=== PATIENT | male | born 1935 | race Caucasian/White ===

== ENCOUNTER 2016-09-19 10:00 | Inpatient (IN) | payer MEDICARE ==
[~2016-09-19] VITALS: Ht 172.7 cm; Wt 83.5 kg
--- NOTE | ~2016-09-19 | OR ---
PATIENT'S NAME: FERNANDA [facility] AGE: 81 Y [address] ROOM: [address] [address] LOCATION: [facility] ADMIT DATE: 10/12/2016 OR/Procedure Report DISCHARGE DATE: FAMILY PHYSICIAN: John Perez MD ATTENDING PHYSICIAN: Bill Melvin SURGEON: Bill Melvin MD PATHOLOGY SECRETARY: DATE OF PROCEDURE: 10/12/2016 PREOPERATIVE DIAGNOSIS: Varus osteoarthritis, right knee. POSTOPERATIVE DIAGNOSIS: Varus osteoarthritis, right knee. OPERATION PERFORMED: [facility] computer-navigated tricompartmental cemented right total knee replacement with [place] Triathlon #5 femoral component, #6 tibial tray with a 9 mm spacer and a 38 patella. ANESTHESIA: Subarachnoid block. INDICATIONS: This is an 81-year-old male with clinical and radiographic evidence of osteoarthritis of the right knee that no longer is responding to nonoperative treatments with physical therapy and steroid injections. DESCRIPTION OF PROCEDURE: The patient was brought to the operating room, and when a satisfactory spinal anesthesia had been established, his right lower extremity was prepped and draped in an aseptic manner. The skin over the planned incision was injected with Talha mix, and a straight anterior incision was made and carried down through the subcutaneous fat. A quadriceps- splitting approach was utilized such that the patella could be dislocated laterally and everted. The patella was measured at 22 and cut down to 14 mm. A 38 appeared to fit the best, and 3 fixation holes were drilled. The cut patellar surface was protected with a 29 mm trial. The distal femur was then exposed and the ASM gantry pinned to the distal femur. The hip flexion was registered and center of rotation of the hip found. The center of the intercondylar notch in the AP femoral angle and the medial and lateral femoral condyles were all registered. The alignment jig was placed and cut planned for 9 mm depth of cut at the distal femur at 5 degrees of flexion and 0 degrees of varus and valgus. The cutting block was pinned in place, and the distal femoral cut was made. The footed sizing jig was placed and the 2 provisional fixation holes drilled. The #6 cutting block was selected, and it was impacted onto the end of the distal femur. The anterior femoral cut was made, and it appeared to be somewhat shallow, so the #5 cutting block was placed, and the anterior femoral cut was just right, so the and posterior femoral and anterior and posterior femoral chamfer cuts were made. The tibia was exposed and the soft tissues debrided. The ASM gantry was pinned to the PATIENT'S NAME: FERNANDA [facility] AGE: 81 Y [address] ROOM: [place] [address] LOCATION: [facility] ADMIT DATE: 10/12/2016 OR/Procedure Report DISCHARGE DATE: FAMILY PHYSICIAN: John Perez MD ATTENDING PHYSICIAN: Bill Melvin tibial articular surface, and the center of the tibia and midline of the tibia and medial and lateral tibial plateaus and medial and lateral malleoli were all registered. The alignment jig was placed and cut planned for 3 degrees posterior slope with 0 degrees of varus and valgus and 9 mm depth of cut off the lateral tibial plateau. The tibial cut was made. The spacer block was placed and the knee extended fully. The trial femur was then placed and posterior femoral osteophytes excised and posterior capsule injected with Talha mix and the Aquamantys used for hemostasis in the posterior capsule. The #6 trial appeared to fit the best, and it was placed free on the tibia and the knee flexed and extended multiple times and then the tibial template pinned onto the cut surface of the tibia. The trials were removed and the tower clipped onto the tibial template and the plunger impacted home. Trial reduction with a 9 mm spacer allowed full extension, and the knee was stable to varus and valgus stressing. Cut bony surfaces were irrigated and dried while cement was mixed. The tibial tray was cemented into place first and excess cement removed while soft with a [place] elevator. The 9 mm spacer was impacted home and the femoral and patellar components were cemented into place and excess cement removed while soft with a [place] elevator. Once the cement had set, the knee was taken through a range of motion, and the patella tracked well without any thumb pressure. The knee appeared to extend fully as well. The knee was irrigated copiously with saline and closed in layers using a running #1 Vicryl for the quadriceps tendon. Medial capsule was closed with a running #1 Vicryl, the subcutaneous fat closed with running 2-0 Vicryl, and the skin closed with skin mary. Dressings were applied and the patient sent to the PACU, having tolerated the procedure well. MD VINICIUS LATHAM/jsoh /[id number] d: 10/12/16 1403 t: 10/19/16 1253, OPERATIVE SUMMARY
--- NOTE | ~2016-09-19 | DS ---
PATIENT'S NAME: FERNANDA [facility]OS [facility] AGE: 81 Y [address] ROOM: [address] [address] LOCATION: G3 ADMIT DATE: 10/12/2016 Discharge Summary DISCHARGE DATE: 10/14/2016 FAMILY PHYSICIAN: John Perez MD ATTENDING PHYSICIAN: Bill Melvin ADMITTING DIAGNOSIS: Degenerative joint disease, right knee. COMORBIDITIES: 1. Hypertension. 2. Hyperlipidemia. 3. Sick sinus syndrome. 4. Atrial fibrillation. 5. Coronary artery disease. 6. Obstructive sleep apnea. 7. Stage 3 chronic kidney disease. 8. History of prostate cancer. 9. Dementia. HOSPITAL COURSE: The patient was admitted for the aforementioned right total knee arthroplasty. He had a [place] triathlon size 6 tibial base plate, size 5 cruciate retaining femur, asymmetric 38 patella, and a 9 mm bearing. He was given enteric-coated aspirin 325 p.o. b.i.d. for postoperative DVT prophylaxis and was given Pepcid for the same course and duration. He had a pericapsular block as well as a spinal anesthetic. Postoperative day 1, he was comfortable; alert and oriented x3. Neurovascular was intact. Dressings were clean, dry, and intact. PT and mobility were ordered. Postop hemoglobin 14.1. He had some moderate knee and foot pain. He did have chronic peripheral neuropathy and adjustments were made for his gabapentin. Arrangements were made for the patient to be transferred to a swing bed closer to home. DISCHARGE INSTRUCTIONS: Mepilex on until seen in the clinic. [facility]. Continue PT. Weight bear as tolerated. Cardiac prudent diet. Follow up with myself in 6 to 12 days. Leave Mepilex on. EMELY ARRIOLA FOR MD EDA LATHAM/josh /[id number] d: 10/20/16 1116 t: 10/24/16 1423, DISCHARGE SUMMARY
[~2016-09-19 10:00] MED LIST: ADVIL200 M1 PO; ALDACTONE25 MG PO; ASPIRIN325 MG PO; CORDARONE,PACE200 MG PO; COZAAR25 MG PO; DITROPAN5 MG PO; LIPITOR40 MG PO; NEURONTIN300 MG PO; NORVASC2.5 MG PO; TRIAMCINOLONE454 GM TOP
--- NOTE | 2016-10-12 15:00 | NUR ---
RECEIVED REFRRAL TO ARRANGE FOR PATIENT TO GO TO SNF. I MEET WITH PATIENT AND HIS SON AT THE BEDSIDE. INTRODUCED CM AND OUR ROLE. PATIENT LIVES ALONE IN OWN HOME. HIS SON WILL NOT BE ABLE TO HELP HIM FOR A WEEK AND THEY FEEL FERNANDA WILL NEED TO GO TO SNF FOR SHORT STAY. PRESENTED TO THEM THE SNF OPTIONS IN [place] AND FERNANDA WOULD LIKE FOR ME TO CHECK WITH [facility] OR [facility]. I MADE REFERRAL TO MEI WITH [facility] AND SHE INFORMS ME THAT [facility] HAS A OPENING. SHE WOULD LIKE FOR ME TO FAX INFO TO HER SHE WILL REVIEW IT AND COME TO ASSES PATIENT TOMORROW. NOTED THAT PATIENT HAS [facility] MEDICARE AND THEY DO NOT REQUIRE A 3 MIDNIGHT STAY SO PATIENT COULD BE READY TO TRANSFERE MONDAY.
--- NOTE | 2016-10-12 16:34 | NUR ---
ARRIVED TO THE FLOOR AT 1100 WILL BE ON ROUTINE VITAL SIGNS. HAS DEMENTIA. WILL GO TO A SWINGBED AT DISCHARGE AND HE IS NOT HAPPY ABOUT IT. TAKING PO WITHOUT DIFFICULTY. HAD 1 NORCO TWICE THE LAST ONE AT 1515. UNABLE TO VOID WHEN RETURN TO THE FLOOR SO WAS STRAIGHT CATHED AT 1400 FOR 800 ML'S. NO VOID SINCE. UP TO THE CHAIR WITH [facility]BA TRANSFERED WELL. FAMILY AT BEDSIDE.
--- NOTE | 2016-10-13 05:39 | NUR ---
Pt forgetful, hx of dementia. Voiding w/o difficulty, but has urgency, which is normal per patient. [facility] for pain last at 0414. 2L per NC. Dressing C/D/I. CSM intact. Denies N/V. One assist GBW.
[2016-10-13 06:15] LABS: HEMATOCRIT 41.9 % (33.0-50.0); HEMOGLOBIN 14.1 g/dL (11.0-16.0)
[2016-10-13] MEDS ORDERED: ARICEPT 5 MG5 MG PO (10:11)
--- NOTE | 2016-10-13 15:04 | NUR ---
Talked with Xiomara at [facility], they will accept pt tomorrow and come get him at 1000. Vanessa from [facility] coming up today to do paperwork. Will let physician know.
--- NOTE | 2016-10-13 15:16 | NUR ---
PATIENT DOING WELL. UP IN CHAIR, AMBULATED TO BATHROOM. LEG PUMPS USED PER PATIENT REQUEST INSTEAD OF FOOT PUMPS. CSM ADEQUATE. DRESSING D/I TO RIGHT LEG. NORCO TAB LAST AT 1330. VOIDING WELL. NO N/V. FORGETFUL. POSSIBLE [facility] TRANSFER TOMORROW.
--- NOTE | 2016-10-14 03:31 | NUR ---
Pt forgetful, hx dementia. Pt given percocet for pain, last at 324. Pt needs encouragement to use IS. Pt was 85% on RA at beginning of shift, put on 2L then at 0330 titrated to 3L by Respiratory. Pt supposed to have cpap but gave it to his son. No N/V this hsift.
--- NOTE | 2016-10-14 10:01 | NUR ---
Pt alert, oriented, forgetful and some early dementia. Pt has been up with one assist to bathroom and in the maloney. Uses walker and gait belt. Ice to knee all time with leg elevated when not up. Pt has mepilex dressing on knee and was reinforced with tegaderm upper area earlier today. Rt foot good pulse, toes warm, selwyn well. Good dorsal and plantar flexion. Pt has tingling and burning Rt foot that he has had since ankle fracture in the past. Pt had nausea yesterday. None so far today. Appetite not really good yet. Pt changed to percocet yesterday. had one at 0725 today. Pt has been on 2-3 Liters O2 and unable to wean . Has Cpap at home but doesn't wear it. Says gave it to his son. Pt has refused leg pumps as of yesterday. Push IS use. Pt hasn't been impulsive, uses light. Alarms on anyway thogh. Has urinary urgency and brief on.
== END 2016-10-14 11:00 | DRG 470 ==
LOC: GPCU 10-12 05:47 → G3N 10-12 08:56
PROVIDERS: ADMIT Orthopaedic Surgery
PROC: XR2G021 Monitoring of Right Knee Joint using Intraoperative Knee Replacement Sensor, Open Approach, New Technology Group 1 (ICD-10-PCS; principal; 2016-10-12)
PROC: 0SRC0J9 Replacement of Right Knee Joint with Synthetic Substitute, Cemented, Open Approach (ICD-10-PCS; principal; 2016-10-12)
DX: M17.11 Unilateral primary osteoarthritis, right knee (principal); I49.5 Sick sinus syndrome; F03.90 Unspecified dementia, unspecified severity, without behavioral disturbance, psychotic disturbance, mood disturbance, and anxiety; E78.5 Hyperlipidemia, unspecified; G47.33 Obstructive sleep apnea (adult) (pediatric); I12.9 Hypertensive chronic kidney disease with stage 1 through stage 4 chronic kidney disease, or unspecified chronic kidney disease; I25.10 Atherosclerotic heart disease of native coronary artery without angina pectoris; I48.0 Paroxysmal atrial fibrillation; N18.3 Chronic kidney disease, stage 3 (moderate); Z95.0 Presence of cardiac pacemaker; M21.161 Varus deformity, not elsewhere classified, right knee
CPT/HCPCS: C1713; C1776; J0171; J0690; J0735; J2001; J2795; J7030; J7040; J7120

== ENCOUNTER → 2016-09-22 | Outpatient (CLI) | payer MEDICARE ==
[~2016-09-22] MED LIST changes: +ARICEPT 5 MG5 MG PO
== END | disposition disaster alternative care site (69) ==
LOC: GNJRC 09:28
DX: Z01.812 Encounter for preprocedural laboratory examination (principal)

== ENCOUNTER → 2016-09-26 | Outpatient (CLI) | payer MEDICARE ==
[2016-09-26 14:35] LABS: ALBUMIN 3.5 gm/dL (3.5-5.0); TOTAL BILIRUBIN 0.7 mg/dL (0.0-1.5); TOTAL PROTEIN 7.5 g/dL (6.0-8.4)
== END | disposition disaster alternative care site (69) ==
LOC: LCNC 14:13
PROVIDERS: Internal Medicine Interventional Cardiology
DX: Z79.899 Other long term (current) drug therapy (principal)